=== PATIENT | male | born 1990 ===

== ENCOUNTER 2021-01-19 15:04 | Emergency (ER) | payer SELFPAY ==
[~2021-01-19] VITALS: Ht 195.6 cm; Wt 134.3 kg
--- NOTE | 2021-01-19 15:48 | NUR ---
FIRST CONTACT: FELL DOWN FULL FLIGHT OF STAIRS YESTERDAY SECONDARY PER PT TO ETOH. PT C/O PAIN TO BACK, HEAD, AND RIGHT KNEE. DENIES LOC YESTERDAY, BUT SPOSE REPORTS HE HAS LOC TODAY FOR ABOUT 5 MINTUES. +N/V. DENIES MIDLINE NECK TENDERNESS. PT WITH STEADY GAIT TO ROOM. ATTACHED TO MONITORS. VSS. ORTIZ
--- NOTE | 2021-01-19 16:18 | NUR ---
PT TO CT. SAMANTHA PEARSON EVALUATED.
[2021-01-19] MEDS ORDERED: ONDANSETRON ODT 4 MG ONE (16:21)
[2021-01-19] MEDS ORDERED: ONDANSETRON ODT 8 MG PO ONE (16:30)
[2021-01-19] MEDS ORDERED: ACETAMINOPHEN 500 MG TABLET ONE (16:38)
--- NOTE | 2021-01-19 16:56 | NUR ---
PATIENT RESTING IN BED. VSS. NADN. TOLERATING PO INTAKE.
[2021-01-19] MEDS ORDERED: ACETAMINOPHEN 500 MG TABLET PO ONE (17:00)
[2021-01-19 17:35] VITALS: BP 130/85
--- NOTE | 2021-01-19 17:38 | NUR ---
Patient given discharge instructions and they have confirmed that they understand the instructions. Patient ambulatory with steady gait. NAD, all questions answered appropriately, denies additional needs at this time. No personal belongings left in room after discharge.
== END 2021-01-19 17:37 | disposition home or self-care (01) ==
LOC: ED 17:31
DX: S16.1XXA Strain of muscle, fascia and tendon at neck level, initial encounter (principal); S43.402A Unspecified sprain of left shoulder joint, initial encounter; S09.90XA Unspecified injury of head, initial encounter; Z88.2 Allergy status to sulfonamides; W10.9XXA Fall (on) (from) unspecified stairs and steps, initial encounter; Y93.89 Activity, other specified; Y92.009 Unspecified place in unspecified non-institutional (private) residence as the place of occurrence of the external cause; Y99.8 Other external cause status
CPT/HCPCS: 70450; 70486; 72125; 73030; 99285; Q0162